=== PATIENT | female | born 1990 | race Caucasian/White ===

== ENCOUNTER 2024-05-15 17:42 | Emergency (ER) | payer BC, SELFPAY ==
[2024-05-15 17:49] VITALS: BP 124/77; PULSE 135; RESP 18; TEMP 36.9; O2SAT 95; BMI 26.6
--- NOTE | 2024-05-15 18:00 | CRLHL7_ITS ---
For Patients: As a result of the Cures Act, medical imaging exams and procedure reports are released immediately into your electronic medical record. You may view this report before your referring provider. If you have questions, please contact your health care provider. Indication: Laceration between 4th and 5th toes Technique: Right foot 3 views. Comparison: None. Findings: Bones: Alignment is normal. No fractures or bone lesions. Joint spaces: Unremarkable. Soft tissues: Unremarkable. Impression: No sign of acute injury. Dictated by Linda Potts MD @ 05/15/2024 6:33:55 PM (Electronically Signed)
[2024-05-15] MEDS: cephALEXin 500 MG CAPSULE PO (18:17)
--- NOTE | 2024-05-15 18:21 | ED.GENADULT ---
HPI - General Adult General Chief complaint: Laceration/Wound Stated complaint: R toe lac Time Seen by Provider: 05/15/24 17:49 History of Present Illness HPI narrative: Patient is a 34-year-old female who hit her foot between the 5th and 4th toe in the web space into a car [place]. She has a laceration there. She has been able to walk without difficulty. She is up-to-date on tetanus in 2017. She is generally healthy. Related Data Home Medications ?Medication ?Instructions ?Recorded ?Confirmed No Known Home Medications 05/15/24 05/15/24 Allergies Allergy/AdvReac Type Severity Reaction Status Date / Time No Known Drug Allergies Allergy Verified 05/15/24 17:53 Review of Systems Status of ROS: Reports: 6 or more systems reviewed and unremarkable except as noted in History and below Exam Narrative: Exam Narrative: Objective in no apparent distress Vital signs unremarkable pulses elevated recheck it was lower Her right foot shows no palpable tenderness in the bony aspect, between her 4th and 5th webspace she has the 1 cm laceration. This was soaked in sterile solution and then closed with Dermabond good skin edge approximation. X-ray was taken of the foot to ensure there is no fracture foreign body in this was in fact the case with by my read no fracture and no foreign body. Const: Vital Signs, click to edit/add: Vital Signs - 24 hr 05/15/24 17:49 Temperature 98.5 F Pulse Rate [Pulse Oximeter] 135 H Respiratory Rate 18 Blood Pressure [Ri ght Upper Arm] 124/77 Pulse Oximetry 95 Oxygen Delivery Me thod Room Air Course Vital Signs Vital signs: Initial Vital Signs Temperature 98.5 F 05/15/24 17:49 Temperature Source Temporal Artery Scan 05/15/24 17:49 Pulse Rate 135 H 05/15/24 17:49 Respiratory Rate 18 05/15/24 17:49 Blood Pressure 124/77 05/15/24 17:49 Blood Pressure Mean 92 05/15/24 17:49 Blood Pressure Position Sitting 05/15/24 17:49 Pulse Oximetry 95 05/15/24 17:49 Oxygen Delivery Method Room Air 05/15/24 17:49 Vital Signs Temperature 98.5 F 05/15/24 17:49 Pulse Rate 135 H 05/15/24 17:49 Respiratory Rate 18 05/15/24 17:49 Blood Pressure 124/77 05/15/24 17:49 Pulse Oximetry 95 05/15/24 17:49 Oxygen Delivery Method Room Air 05/15/24 17:49 Temperature 98.5 F 05/15/24 17:49 Pulse Rate 135 H 05/15/24 17:49 Respiratory Rate 18 05/15/24 17:49 Blood Pressure 124/77 05/15/24 17:49 Pulse Oximetry 95 05/15/24 17:49 Oxygen Delivery Method Room Air 05/15/24 17:49 Medications Administered Medications: Discontinued Medications Generic Name Dose Route Start Last Admin Trade Name Nick PRN Reason Stop Dose Admin Cephalexin HCl 500 mg 05/15/24 18:00 05/15/24 18:17 Cephalexin 500 Mg Capsule PO 05/15/24 18:01 500 mg ONCE ONE Administration Medical Decision Making MDM Narrative Medical decision making narrative: 34-year-old female with a toe laceration webspace laceration and should be on Keflex 500 q.i.d. times 5-7 days, will have close the area with Dermabond keep dry for 72 hours then may shower and bathe as normal. Return if problems or concerns. Light use of the foot for the next few days. Discharge Plan Discharge Clinical Impression: Laceration Patient Disposition: Home, Self-Care Condition: Improved Additional Instructions: Keep dry for 72 hours, may shower bathe at that time. Will give you antibiotic to take for the next 5 days. Light activity the foot. May cover with a bandage as needed. We will put some Dermabond or glue on your foot to hold the wound. instymeds script for abx Activity Level: Light activity Discharge Diet: Regular Prescriptions: No Action No Known Home Medications Stand Alone Forms: MyHealth Info Instructions
== END 2024-05-15 18:34 | disposition home or self-care (01) ==
LOC: ED 18:19
PROVIDERS: Emergency Provider Family Medicine
DX: S91.114A Laceration without foreign body of right lesser toe(s) without damage to nail, initial encounter (principal); W20.8XXA Other cause of strike by thrown, projected or falling object, initial encounter
CPT/HCPCS: 12001; 73630; 99282; 99284; A9270